=== PATIENT | female | born 1970 | race African-American/Black ===

== ENCOUNTER 2019-07-26 07:14 | Outpatient (CLI) | payer BC, SELFPAY ==
--- NOTE | ~2019-07-26 | MM_ITS ---
EXAMINATION: MM screening narendra BI w meliton HISTORY: Screening mammogram TECHNIQUE: Craniocaudal and mediolateral oblique 3-D tomosynthesis images were obtained and synthetic 2-D images were generated. CAD analysis was submitted and interpreted. COMPARISON: Comparison to multiple prior studies sequentially, with oldest reviewed study dated 06/13. BREAST PARENCHYMAL COMPOSITION: The breasts are heterogeneously dense, which may obscure small masses . FINDINGS: There is no evidence of suspicious mass, calcification, or architectural distortion to sugg est malignancy in either breast. There has been no suspicious interval change. IMPRESSION: 1. No mammographic evidence of malignancy. 2. Recommend routine screening mammography in one year. BI-RADS Category 1: Negative Reviewed, dictated and finalized at location A.
== END 2019-07-26 07:15 | disposition home or self-care (01) ==
LOC: ANHIMG 07:16
PROVIDERS: PCP Family Medicine; Visit Provider Family Medicine
DX: Z12.31 Encounter for screening mammogram for malignant neoplasm of breast (principal)
CPT/HCPCS: 77063; 77067

== ENCOUNTER → 2020-01-14 11:36 | Outpatient (CLI) | payer BC, SELFPAY ==
--- NOTE | ~2020-01-14 | US_ITS ---
EXAMINATION: US thyroid DATE: 01/14/2020 11:57 INDICATION: Iron deficiency related diffuse endemic goiter. TECHNIQUE: Multiple ultrasound images of the thyroid were obtained. COMPARISON: None. FINDINGS: The right thyroid lobe measures 5.0 x 2.1 x 2.3 cm. The left thyroid lobe measures 4.6 x 1.8 x 2.3 c m. In the right thyroid lobe, there is a 1.1 cm solid, hypoechoic, [id number] nodule with miladis h margin without echogenic foci (TI-RADS TR4). In the thyroid isthmus, there is a 6 mm solid, hypoech oic, [id number]-[id number] nodule with smooth margin without echogenic foci (TR4). IMPRESSION: 1. Thyroid nodules. Thyroid ultrasound is recommended in one year. Reviewed, dictated and finalized at location A. N TESTER
== END ==
PROVIDERS: PCP Family Medicine; Visit Provider Family Medicine
DX: E01.0 Iodine-deficiency related diffuse (endemic) goiter (principal)
CPT/HCPCS: 76536

== ENCOUNTER 2020-08-07 07:17 | Outpatient (CLI) | payer BC, SELFPAY ==
--- NOTE | ~2020-08-07 | MM_ITS ---
EXAMINATION: MM screening narendra BI w meliton HISTORY: Screening mammogram, family history of breast cancer in her mother. TECHNIQUE: Craniocaudal and mediolateral oblique 3-D tomosynthesis images were obtained and synthetic 2-D images were generated. CAD analysis was submitted and interpreted. COMPARISON: 07/26/2019, 07/18/2018, 03/31/2017 BREAST PARENCHYMAL COMPOSITION: The breasts are heterogeneously dense, which may obscure small masses . FINDINGS: There is no evidence of suspicious mass, calcification, or architectural distortion to sugg est malignancy in either breast. There has been no suspicious interval change. IMPRESSION: 1. No mammographic evidence of malignancy. 2. Recommend routine screening mammography in one year. BI-RADS Category 1: Negative Reviewed, dictated and finalized at location A.
== END 2020-08-07 07:18 | disposition home or self-care (01) ==
LOC: ANHIMG 07:18
PROVIDERS: PCP Family Medicine; Visit Provider Obstetrics & Gynecology
DX: Z12.31 Encounter for screening mammogram for malignant neoplasm of breast (principal)
CPT/HCPCS: 77063; 77067

== ENCOUNTER 2020-09-29 13:12 | Outpatient (CLI) | payer BC, SELFPAY ==
--- NOTE | ~2020-09-29 | CT_ITS ---
EXAMINATION: CT soft tissue neck wo con DATE: 09/29/2020 13:37 INDICATION: Left neck lump. TECHNIQUE: Computed tomography (CT) of the neck was performed without intravenous contrast. Automated exposure control and iterative reconstruction technique were employed. The dose-length product was 5 19.64 mGy-cm. COMPARISON: Thyroid ultrasound 01/14/2020 FINDINGS: There is a skin marker in the left neck. There is no abnormal mass in this area. There are no pathologically enlarged lymph nodes. There is mild mucosal thickening in the ethmoid sinuses. Ther e is mild cervical spondylosis. IMPRESSION: 1. No abnormal mass or lymphadenopathy in the patient's area of concern in left neck. Reviewed, dictated and finalized at location A.
== END 2020-09-29 13:13 | disposition home or self-care (01) ==
LOC: ANHIMG 13:14
PROVIDERS: PCP Family Medicine; Visit Provider Family Medicine
DX: R22.1 Localized swelling, mass and lump, neck (principal)
CPT/HCPCS: 70490

== ENCOUNTER → 2021-02-10 03:57 | Outpatient (CLI) | payer BC, SELFPAY ==
[2021-02-15 22:56] LABS: SARS-CoV-2 RNA PCR Negative
== END ==
PROVIDERS: PCP Family Medicine; Visit Provider Physician Assistant
DX: Z20.822 Contact with and (suspected) exposure to COVID-19 (principal)
CPT/HCPCS: C9803; U0003; U0005

== ENCOUNTER 2021-08-20 08:14 | Outpatient (CLI) | payer BC, SELFPAY ==
--- NOTE | ~2021-08-20 | MM_ITS ---
EXAMINATION: MM screening narendra BI w meliton HISTORY: Screening TECHNIQUE: Craniocaudal and mediolateral oblique 3-D tomosynthesis images were obtained and synthetic 2-D images were generated. CAD analysis was submitted and interpreted. COMPARISON: Comparison to multiple prior studies sequentially, with oldest reviewed study dated 08/06. BREAST PARENCHYMAL COMPOSITION: The breasts are heterogeneously dense, which may obscure small masses . FINDINGS: There is no evidence of suspicious mass, calcification, or architectural distortion to sugg est malignancy in either breast. There has been no suspicious interval change. IMPRESSION: 1. No mammographic evidence of malignancy. 2. Recommend routine screening mammography in one year. BI-RADS Category 1: Negative Reviewed, dictated and finalized at location A.
== END 2021-08-20 08:15 | disposition home or self-care (01) ==
PROVIDERS: PCP Family Medicine; Visit Provider Family Medicine
DX: Z12.31 Encounter for screening mammogram for malignant neoplasm of breast (principal)
CPT/HCPCS: 77063; 77067

== ENCOUNTER 2022-04-14 10:20 | Outpatient (CLI) | payer BC, SELFPAY ==
--- NOTE | ~2022-04-14 | US_ITS ---
EXAMINATION: US pelvic complete w TV DATE: 04/14/2022 11:38 INDICATION: Uterine hypertrophy. Patient going through menopause. Comparison:Ultrasound dated 09/28/2018 TECHNIQUE: Multiple transabdominal and endovaginal sonographic images of the pelvis performed. FINDINGS: The uterus measures 6.1 x 5 x 5 cm. There are multiple uterine fibroids, some of which are calcified. Largest discrete fibroid measures 4.6 x 3.7 x 2.6 cm. The endometrial complex measures 2 m m. The the ovaries are not well visualized. There is possible right ovary identified on the transabdomin al images, although this is not definitive. No significant adnexal masses or fluid collections. There is trace free fluid in the pelvis. There are no abnormal masses seen on either side. IMPRESSION: 1. Multiple uterine fibroids with increased size of largest now measuring 4.6 cm greatest dimension. 2: Ovaries not well visualized, possibly atrophic. Reviewed, dictated and finalized at location A. E PLANT SUPERVISOR IMPRESSION: 1. Multiple uterine fibroids with increased size of largest now measuring 4.6 c m greatest dimension. 2: Ovaries not well visualized, possibly atrophic.
== END 2022-04-14 10:21 | disposition home or self-care (01) ==
PROVIDERS: PCP Family Medicine; Visit Provider Obstetrics & Gynecology
DX: N85.2 Hypertrophy of uterus (principal); D25.9 Leiomyoma of uterus, unspecified
CPT/HCPCS: 76830; 76856

== ENCOUNTER 2022-07-14 12:30 | Outpatient (RCR) | payer BC, OTHER, SELFPAY ==
--- NOTE | 2022-05-19 09:39 | PTOPEVAL1 ---
Assessment and note entered by Ann Gaviria DPT Evaluation Information Assessment Status Evaluation Subjective Information Pt reports she has always experienced urinary frequency. Started noticing incontinence in her 30 's and was diagnosed with fibroids. Had a procedure to take care of the fibroids in 2005. The incontinence for a few years was gone, but then started noticing it again. Dr. Clifford did an ultrasound recently and has been diagnosed with the fibroids again. States she wears a pad all the time now, goes through 3-4 a day and sometimes 2 at night. Incontinence every day, slow leak throughout the day . Does not seem to notice it is any worse with cough, sneeze, laugh, etc. Urinates more than 10 times a day and has recently been getting up 1 time at night. Denies pain with urination except for having a UTI which is not common. BM every 1-2 days, typically does not have pain. Denies a history of significant pelvic pain , maybe occasional discomfort with pap smear. Pt has never been . States she has periods but not as regular anymore, may be nearing menopause. Reported Pain Level Pain Score 0: Self Report Assessment PT Clinical Summary The patient is presenting to skilled therapy with urinary incontinence and frequency. She demonstrates decreased pelvic floor strength, as well as decreased hip/core strength, which are contributing to her daily incontinence and frequency. She will benefit from therapy to address her impairments in order to reduce her urinary symptoms and pad use. Plan of Care Interventions Manual Therapy,Neuro Re-education,Patient/ Caregiver Education,Therapeutic Activities, Therapeutic Exercise,Self-Care/Home Management PT Services Indicated Yes Treatment Frequency and 1 time a week for 4 weeks Duration These treatments will address the objective and functional deficits as defined above. The patient will be advanced safely and appropriately in order for the patient to progress towards his/her prior level of function. Additional exercises will be introduced and as well as a comprehensive home exercise program upon discharge, if needed, ?to ensure carryover of functional gains achieved in the clinic. This treatment plan has been reviewed and agreement upon by the patient.
--- NOTE | 2022-05-26 12:29 | PCPTNOTE ---
Pt called and cancelled due to inclement weather
--- NOTE | 2022-06-16 09:17 | PTOPPROG ---
Assessment and note entered by Ann Gaviria DPT Evaluation Information Assessment Status Progress Subjective Information Pt reports some improvements with therapy. Has been compliant with HEP and is noticing improvements in her ability to hold urine longer and is not rushing to the bathroom as often. Still getting incontinence daily. Will be getting surgery end of the year, hysterectomy. Assessment PT Clinical Summary The patient has made good progress in therapy and reports decreased urinary urgency/frequency. She continues to have incontinence daily. She demonstrates improved core and pelvic floor strength. Due to her progress but continued incontinence, she will benefit from further therapy to decrease frequency of incontinence. Plan of Care Interventions Manual Therapy,Neuro Re-education,Patient/ Caregiver Education,Therapeutic Activities, Therapeutic Exercise,Self-Care/Home Management PT Services Indicated Yes Treatment Frequency and 1 time a week for 4 weeks Duration These treatments will address the objective and functional deficits as defined above. The patient will be advanced safely and appropriately in order for the patient to progress towards his/her prior level of function. Additional exercises will be introduced and as well as a comprehensive home exercise program upon discharge, if needed, ?to ensure carryover of functional gains achieved in the clinic. This treatment plan has been reviewed and agreement upon by the patient.
--- NOTE | 2022-06-23 08:43 | PCPTNOTE ---
Pt called to cancel appointment
--- NOTE | 2022-07-14 13:01 | PTOPDC ---
Assessment and note entered by Ann Gaviria DPT Evaluation Information Assessment Status Discharge Subjective Information Pt reports therapy has been going well for the past month, thinks improvements have been made as far as pelvic floor strength and her ability to hold urine. Incontinence is occurring daily still, a few drops at a time but noticeable. Has been more active this week. Reported Pain Level Pain Score 0: Self Report Assessment PT Clinical Summary The patient has made good progress overall in therapy. She demonstrates improved hip strength and improved pelvic floor coordination. Due to her progress and independence with HEP, plan for discharge at this time. She has been educated to continue and how to progress her HEP independently in order to prepare for surgery at the end of the year. Plan of Care PT Services Indicated No
== END 2022-07-14 13:28 | disposition home or self-care (01) ==
LOC: ANHPT 12:30
PROVIDERS: PCP Family Medicine; Visit Provider Family Medicine
DX: R32 Unspecified urinary incontinence (principal)
CPT/HCPCS: 97112; 97161; 97530

== ENCOUNTER → 2022-11-21 14:29 | Outpatient (CLI) | payer OTHER, SELFPAY ==
--- NOTE | ~2022-11-21 | MM_ITS ---
EXAMINATION: MM screening narendra BI w meliton HISTORY: Screening mammogram TECHNIQUE: Craniocaudal and mediolateral oblique 3-D tomosynthesis images were obtained and synthetic 2-D images were generated. CAD analysis was submitted and interpreted. COMPARISON: 08/20/2021, 08/07/2020, 07/26/2019 screening mammogram examinations BREAST PARENCHYMAL COMPOSITION: The breasts are heterogeneously dense, which may obscure small masses . FINDINGS: There is no evidence of suspicious mass, calcification, or architectural distortion to sugg est malignancy in either breast. There has been no suspicious interval change. IMPRESSION: 1. No mammographic evidence of malignancy. 2. Recommend routine screening mammography in one year. BI-RADS Category 1: Negative Reviewed, dictated and finalized at location A.
== END ==
PROVIDERS: PCP Family Medicine; Visit Provider Obstetrics & Gynecology
DX: Z12.31 Encounter for screening mammogram for malignant neoplasm of breast (principal)
CPT/HCPCS: 77063; 77067

== ENCOUNTER 2022-12-29 14:58 | Outpatient (CLI) | payer OTHER, SELFPAY ==
--- NOTE | ~2022-12-29 | US_ITS ---
US thyroid INDICATION: Follow-up thyroid nodules TECHNIQUE: Real-time sonographic images of the thyroid gland were obtained. COMPARISON: Ultrasound dated 01/14/2020 FINDINGS: The right thyroid lobe measures right thyroid lobe measures 4.7 x 2.2 x 2.3 cm. Left lobe m easures 5 x 1.7 x 2.4 cm. In the right lobe inferiorly there is an oval hypoechoic 11 mm mass which i s wider than tall, solid, ill-defined margins, wider than tall, no internal echogenic foci, TR 4. The re is a stable second 5 mm hypoechoic mass of the right lobe.. Normal vascularity. Slight interval in creased size of 9 mm oval hypoechoic mass of the isthmus which is solid, wider than tall, smoothly ma rginated without echogenic foci, TR 4. IMPRESSION: 1. Stable likely benign right thyroid nodules. Consider follow-up ultrasound in 12 months. Reviewed, dictated and finalized at location A. IMPRESSION: 1. Stable likely benign right thyroid nodules. Consider follow-up ultrasound i n 12 months.
== END 2022-12-29 14:59 ==
LOC: MICIMG 14:59
PROVIDERS: PCP Family Medicine; Visit Provider Otolaryngology
DX: E04.2 Nontoxic multinodular goiter (principal)
CPT/HCPCS: 76536

== ENCOUNTER 2023-01-30 17:23 | Emergency (ER) | payer OTHER, SELFPAY ==
--- NOTE | ~2023-01-30 | XR_ITS ---
EXAMINATION: XR chest 2V Exam Date/Time: 01/30/2023 23:42 AUTOMOTIVE WARRANTY ADMINISTRATOR HISTORY: cough DIZZY PASSED OUT Comparison: 03/03/2018. RESULT: Lines, tubes, and devices: None. Lungs and pleura: Clear. Cardiomediastinal silhouette: Stable. Other: No acute osseous or upper abdominal finding. IMPRESSION: No acute cardiopulmonary process. Reviewed, dictated and finalized at location K. MOTIVE WARRANTY ADMINISTRATOR
--- NOTE | 2023-01-30 17:24 | ECG_ITS ---
Measurements Intervals [place] Rate: 75 P: 61 NH: 210 QRS: -29 QRSD: 89 T: 64 QT: 363 QTc: 407 Interpretive Statements SINUS RHYTHM WITH FIRST DEGREE AV BLOCK POSSIBLE LEFT ATRIAL ENLARGEMENT [-0.1mV P WAVE IN V1/V2] LOW QRS VOLTAGE IN PRECORDIAL LEADS [QRS DEFLECTION < 1.0 mV IN CHEST LEADS] POOR R-WAVE PROGRESSION, CANNOT RULE OLD sEPTAL MYOCARDIAL INFARCTION NO PREVIOUS ECG AVAILABLE FOR COMPARISON Electronically Signed On 01-30-2023 20:24:17 PREP PERSON by Aleida Webster M.D.
[2023-01-30 17:50] VITALS: BP 123/65; PULSE 80; RESP 20; TEMP 36.6; O2SAT 97
[2023-01-30 23:20] VITALS: BP 129/74; PULSE 75; RESP 15; O2SAT 100
--- NOTE | 2023-01-30 23:42 | ED.SYNCOPE ---
HPI - Syncope General Chief Complaint: Syncope Stated Complaint: SYNCOPE,DIZZINESS,WEAKNESS Time Seen by Provider: 01/30/23 22:40 History of Present Illness HPI narrative: Patient is a 52-year-old female with history of hypertension presenting with syncope. Patient states that for the last several days she has had body aches, nasal congestion, cough. States that she was at work today when she began feeling lightheaded, nauseated, hot. states the next thing she remembers is her coworkers waking her up. States that she felt very sweaty. She denies chest pain or shortness of breath. Currently, she states that she feels improved other than the diffuse body aches. States she had a negative COVID test at home. No fevers or chills, abdominal pain, nausea vomiting, diarrhea. Denies leg swelling. No further complaints. Related Data Home Medications Medication Instructions Recorded Confirmed evening primrose oil-linoleic 1 cap PO TID 12/05/19 02/06/23 acid-gamolenic acid 1,000 mg capsule vitamin E 200 unit capsule 200 unit PO DAILY 12/05/19 02/06/23 lactobacillus combination no.9 4 4,000 mmu cells PO DAILY 02/16/20 02/06/23 billion cell capsule (Adult 50 Plus Probiotic) famotidine 20 mg tablet (Pepcid) 20 mg PO DAILY PRN 12/22/20 02/06/23 cholecalciferol (vitamin D3) 350 1,000 mcg PO WEEKLY 09/26/21 02/06/23 mcg (14,000 unit) capsule ruxolitinib 1.5 % topical cream 1 applic topical BID 03/20/22 02/06/23 (Opzelura) hydroquinone 4 % topical cream 1 applic topical DAILY 11/10/22 02/06/23 Allergies Allergy/AdvReac Type Severity Reaction Status Date / Time tree nut Allergy Intermediate Rash Verified 02/06/23 11:07 Review of Systems Review of Systems: All systems reviewed & are unremarkable except as noted in HPI and below PMFSH Past Medical History Medical History Acid reflux Embolism 2006, uterine FH: diabetes mellitus Fibroids Neck mass Prediabetes Urinary incontinence Surgical History Surgical History H/O eye surgery Status post embolization of uterine artery Family History Family History Mother , Metastatic breast cancer- COD age 59 Hypertension Diabetes mellitus Breast cancer, Onset Age: 40 Father Hypertension Diabetes mellitus Hyperlipidemia Sibling Diabetes mellitus Grandparent Heart disease Social History Social History Smoking status: Never smoker Second hand tobacco smoke exposure: No Alcohol intake: current Alcohol use details: rare Substance use: never Substance use type: does not use Lack of Transportation: No Lack of Food: Never True Current Housing: I Have Housing Concerned About Future Housing: No Difficulty Paying Gas/Electric Bills: No Difficulty Paying for Meds: No Currently Unemployed: No Education: Bachelor's Degree Difficulty w/ Childcare or Family Care: No Living arrangements: with family Gender identity (if verbalized by the patient): Female Sexual Orientation (if Verbalized by the Patient): Straight or Heterosexual Spiritual care concerns: No Agree to blood products: Yes Exam Narrative: GENERAL: Well-appearing, In no acute distress, pleasant and cooperative HEAD: Normocephalic, atraumatic. EYES: PERRLA and EOMI. ENT: Mucous membranes moist. NECK: Supple. CHEST: Clear to auscultation. No respiratory distress. HEART: Regular rate and rhythm ABDOMEN: Soft, nontender, nondistended EXTREMITIES: Normal range of motion. No edema. SKIN: Warm, dry, no rash. NEURO: No focal deficits. Alert and oriented x3. PSYCH: Normal mood and affect. Course Vital Signs Vital signs: Vital Signs Temperature 97.8 F 01/30/23 17:50 Pulse Rate 80
[2023-01-31] MEDS: SODIUM CHLORIDE 0.9% IV 1,000 ML 999 ML IV CONT (00:09)
[2023-01-31 00:24] LABS: Basophils Percent Auto 0.3 % (0.2-1.2); Hematocrit 40.2 % (37.0-47.0); Hemoglobin 12.9 g/dL (12.0-15.0); Immature Granulocyte Absolute 0.01 K/mm3 (0.00-0.031); Immature Granulocyte Percent A 0.3 % (0-0.5); Lymphocytes Absolute Auto 1.26 K/mm3 (0.9-3.2); Lymphocytes Percent Auto 36.2 % (18.3-44.2); Mean Corpuscular HGB Conc 32.1 g/dl (32-36); Mean Corpuscular Hemoglobin 26.7 pg (26-34); Mean Corpuscular Volume 83.2 fl (80-100); Mean Platelet Volume 10.2 fl (7.4-10.4); Monocytes Absolute Auto 0.4 K/mm3 (0.1-0.6); Monocytes Percent Auto 11.5 % (2.6-8.5); Neutrophils Absolute Auto 1.8 K/mm3 (1.3-6.7); Neutrophils Percent Auto 51.7 % (45.5-73.1); Platelet Count Result 217 k/mm3 (150-375); Red Blood Count 4.83 M/mm3 (4.2-5.4); Red Cell Distribution Width 13.6 % (11.5-14.5); White Blood Count 3.5 K/mm3 (4.5-10.0)
[2023-01-31 00:29] LABS: Alanine Aminotransferase 37 U/L (6-35); Albumin Level 4.6 g/dL (3.5-5.1); Alkaline Phosphatase 118 U/L (38-126); Anion Gap 9 mmol/L (8-16); Aspartate Amino Transferase 45 U/L (14-36); Bilirubin,Total 0.5 mg/dL (0.2-1.3); Blood Urea Nitrogen 16 mg/dL (7-17); Calcium 8.9 mg/dL (8.4-10.2); Carbon Dioxide 28 mmol/L (22-30); Chloride 99 mmol/L (98-107); Estimated CRCL calculation 69 ml/min; Estimated Glomerular Filt Rate > 60; Glucose 158 mg/dL (65-110); Potassium 3.8 mmol/L (3.4-5.0); Sodium 136 mmol/L (137-145)
[2023-01-31 00:40] LABS: Troponin I < 0.012 ng/mL (0.000-0.034)
[2023-01-31 01:21] LABS: Influenza A QL RT-PCR Negative (Negative); Influenza B QL RT-PCR Negative (Negative); RSV RNA, RT-PCR Negative (Negative); SARS-CoV-2 RNA PCR Positive (Negative)
[2023-01-31 02:57] VITALS: BP 117/83; PULSE 68; RESP 15; O2SAT 98
== END 2023-01-31 03:04 | disposition home or self-care (01) ==
PROVIDERS: Emergency Provider Emergency Medicine; PCP Family Medicine
DX: R55 Syncope and collapse (principal); U07.1 COVID-19
CPT/HCPCS: 36415; 71046; 80053; 84484; 85025; 87637; 93005; 96360; 99284; J7030

== ENCOUNTER 2023-02-13 15:53 | Outpatient (CLI) | payer OTHER, SELFPAY ==
--- NOTE | ~2023-02-13 | CT_ITS ---
EXAMINATION: CT brain wo con DATE: 02/13/2023 16:15 INDICATION: Headache, unspecified. TECHNIQUE: Computed tomography (CT) of the head was performed without intravenous contrast. The mA wa s adjusted according to patient size. Iterative reconstruction technique was employed. The dose-lengt h product was 681.00 mGy-cm. COMPARISON: None FINDINGS: There is no intracranial hemorrhage, acute infarction, or abnormal intracranial mass lesion . The ventricles are normal in size. The mastoid air cells are normal. The paranasal sinuses are antionette r. IMPRESSION: 1. Normal brain. Reviewed, dictated and finalized at location E. T MAKER IMPRESSION: 1. Normal brain.
== END 2023-02-13 15:54 | disposition home or self-care (01) ==
PROVIDERS: PCP Family Medicine; Visit Provider Physician Assistant
DX: R51.9 Headache, unspecified (principal); R55 Syncope and collapse
CPT/HCPCS: 70450

== ENCOUNTER 2023-03-14 15:32 | Outpatient (CLI) | payer OTHER, SELFPAY ==
--- NOTE | 2023-03-14 15:47 | ECHO_ITS ---
Patient Info Name: Araseli Peace Age: 53 years : 1970 Gender: Female Ht: 65 in Wt: 180 lbs BSA: 1.96 m2 HR: 89 bpm BP: 135 / 99 mmHg Heart Rhythm: Sinus Rhythm Technical Quality: Good Exam Date: 03/14/2023 3:58 PM Exam Location: Echo Lab Patient Status: Outpatient Admit Date: 03/14/2023 Staff Ordering Physician: Elif Amaral PA-C Sand Cutter: Puja Hussein RDCS Attending Provider: Elif Amaral PA-C Referring Physician: Munir ORELLANA; Exam Type: CA echo doppler color flow Study Info Indications - syncope Complete two-dimensional, color flow and Doppler transthoracic echocardiogram is performed. Summary 1. Complete two-dimensional, color flow and Doppler transthoracic echocardiogram is performed. 2. Normal left ventricular size with moderate concentric hypertrophy. Hyperdynamic left ventricular systolic function, with no segmental wall motion abnormalities. Ejection fraction greater than 70%. Normal diastolic function. 3. No pulmonary hypertension, estimated pulmonary arterial systolic pressure is 24 mmHg. 4. No significant valve disease. 5. Possible atrial septal aneurysm. No obvious shunt by color flow, on this technically difficult study. Recommendations * Underlying rhythm may be normal sinus. Left Ventricle Left ventricular chamber dimension is normal. Left ventricular systolic function is hyperdynamic, estimated at >70%. There is moderately increased left ventricular wall thickness. Left ventricular septal wall motion is normal. The left ventricular diastolic function is normal. Right Ventricle Right ventricular chamber dimension is normal. Right ventricular systolic function is normal. Left Atria Left atrial chamber dimension is normal. Right Atria Right atrial chamber dimension is normal. Aortic Valve The aortic valve is trileaflet. There is no aortic valve sclerosis. There is no aortic valve stenosis. There is no aortic valve regurgitation. Pulmonic Valve The pulmonic valve is normal. There is no pulmonic valve stenosis. There is no pulmonic regurgitation. Mitral Valve The mitral valve has normal leaflets. There is no mitral valve stenosis. There is no mitral valve regurgitation. Tricuspid Valve The tricuspid valve leaflets are normal. There is no significant tricuspid valve stenosis. There is trace tricuspid valve regurgitation. No pulmonary hypertension, estimated pulmonary arterial systolic pressure is 24 mmHg. Pericardium/Pleural The pericardium appears normal. There is no pericardial effusion. Inferior Vena Cava Normal inferior vena cava with >50% collapse upon inspiration consistent with Empty right atrial pressure, 10 mmHg. Aorta The aortic root size at the sinus of Valsalva is normal. The prox ascending aorta size is normal. Left Ventricular Outflow Tract Name Value Normal LVOT 2D LVOT Diameter 1.8 cm LVOT Doppler LVOT Peak Velocity 112 cm/s LVOT Peak Gradient 3 mmHg LVOT Mean Gradient 2 mmHg LVOT VTI 20 cm LVOT VTI/AV VTI Ratio 1.0 LVOT Stroke Volum
== END 2023-03-14 15:33 | disposition home or self-care (01) ==
PROVIDERS: PCP Family Medicine; Visit Provider Physician Assistant
DX: R93.1 Abnormal findings on diagnostic imaging of heart and coronary circulation (principal); R55 Syncope and collapse
CPT/HCPCS: 93306

== ENCOUNTER 2023-03-31 08:12 | Outpatient (CLI) | payer OTHER, SELFPAY ==
--- NOTE | ~2023-03-31 | XR_ITS ---
EXAMINATION: XR abdomen/kub 1V DATE: 03/31/2023 09:44 INDICATION: Hematuria, unspecified. TECHNIQUE: A supine view of the abdomen on 2 radiographs was obtained. COMPARISON: CT abdomen and pelvis 03/08/2016 FINDINGS: There are no dilated loops of bowel. There is a moderate volume of stool in the colon. Ther e are vascular calcifications in the pelvis. There is a phlebolith in right pelvis. IMPRESSION: 1. No visible urolithiasis. Reviewed, dictated and finalized at location E. DENTIAL PROPERTY MANAGER IMPRESSION: 1. No visible urolithiasis.
--- NOTE | ~2023-03-31 | MR_ITS ---
EXAMINATION: MR pelvis wo con DATE: 03/31/2023 11:50 INDICATION: Intramural leiomyoma of uterus. TECHNIQUE: Magnetic resonance imaging (MRI) of the pelvis was performed without intravenous contrast. COMPARISON: Pelvis ultrasound 04/14/2022, CT abdomen and pelvis 03/08/2016 FINDINGS: There are no dilated loops of bowel. There are no pathologically enlarged lymph nodes. There is no fr ee intraperitoneal fluid. There is a 1.8 cm intramural fibroid on the left anteriorly. There is a 4.0 cm subserosal fibroid on the left anteriorly. There are 1.5 cm and 1.8 cm subserosal fibroids on the left. There is a 13 mm subserosal fibroid on the right anteriorly. The endometrial complex measures 3 mm . The junctional zone is normal. The ovaries are normal. IMPRESSION: 1. Uterine fibroids. Reviewed, dictated and finalized at location E. SFORCE CONSULTANT IMPRESSION: 1. Uterine fibroids.
== END 2023-03-31 08:13 ==
PROVIDERS: PCP Family Medicine; Visit Provider Obstetrics & Gynecology
DX: D25.1 Intramural leiomyoma of uterus (principal); D25.2 Subserosal leiomyoma of uterus; R31.9 Hematuria, unspecified
CPT/HCPCS: 72195; 74018

== ENCOUNTER 2023-05-01 14:36 | Outpatient (RCR) | payer OTHER, SELFPAY ==
[2023-05-01 14:44] VITALS: BMI 28.0
== END 2023-07-30 09:26 | disposition home or self-care (01) ==
LOC: ANHDMC 14:36
PROVIDERS: PCP Family Medicine; Visit Provider Family Medicine
DX: E11.9 Type 2 diabetes mellitus without complications (principal); Z71.3 Dietary counseling and surveillance
CPT/HCPCS: 97802

== ENCOUNTER 2023-11-30 07:11 | Outpatient (CLI) | payer OTHER, SELFPAY ==
--- NOTE | ~2023-11-30 | MM_ITS ---
EXAMINATION: MM screening narendra BI w meliton HISTORY: Screening mammogram, family history of breast cancer in her mother. TECHNIQUE: Craniocaudal and mediolateral oblique 3-D tomosynthesis images were obtained and synthetic 2-D images were generated. CAD analysis was submitted and interpreted. COMPARISON: 11/21/2022, 08/20/2021, 08/15/2020, 07/26/2019 BREAST PARENCHYMAL COMPOSITION:Not Dense. There are scattered areas of fibroglandular density. FINDINGS: No suspicious mass, calcification, or architectural distortion are identified in either joan ast to suggest malignancy. There has been no suspicious interval change. IMPRESSION: No mammographic evidence of malignancy. Recommend routine screening mammography in one year. BI-RADS Category 1: Negative Reviewed, dictated and finalized at location .
== END 2023-11-30 07:12 | disposition home or self-care (01) ==
LOC: MICIMG 07:12
PROVIDERS: PCP Family Medicine; Visit Provider Obstetrics & Gynecology
DX: Z12.31 Encounter for screening mammogram for malignant neoplasm of breast (principal)
CPT/HCPCS: 77063; 77067

== ENCOUNTER 2024-04-02 09:26 | Emergency (ER) | payer OTHER, SELFPAY ==
--- NOTE | ~2024-04-02 | XR_ITS ---
EXAMINATION: XR knee RT min 4V DATE: 04/02/2024 12:01 INDICATION: Right knee pain. TECHNIQUE: 4 views of right knee were obtained. COMPARISON: None. FINDINGS: Alignment is normal. No fracture. There is mild tricompartmental osteoarthritis. There is a moderate-sized knee joint effusion. IMPRESSION: 1. Mild right knee osteoarthritis. 2. Moderate-sized right knee joint effusion. Reviewed, dictated and finalized at location A. NE LATHE SET UP OPERATOR
--- NOTE | ~2024-04-02 | XR_ITS ---
EXAMINATION: XR knee LT min 4V DATE: 04/02/2024 12:01 INDICATION: Left leg pain. TECHNIQUE: 4 views of left knee were obtained. COMPARISON: None. FINDINGS: Alignment is normal. No fracture. There is mild osteoarthritis of medial and patellofemoral compartments. No knee joint effusion. IMPRESSION: 1. Mild left knee osteoarthritis. Reviewed, dictated and finalized at location A. UNITY ARTS OFFICER
[2024-04-02 09:46] VITALS: BP 121/53; PULSE 76; RESP 16; TEMP 36.4; O2SAT 99
--- NOTE | 2024-04-02 12:38 | ED.GENADULT ---
HPI - General Adult General Chief complaint: Extremity Injury, Lower Stated complaint: R knee pain Time Seen by Provider: 04/02/24 11:57 History of Present Illness HPI narrative: This is a 54-year-old female presenting with knee pain. Patient says that she started working out again several days ago. Since then she has developed swelling in her right knee. She is able to ambulate. She does not have any fevers or erythema to the joint. No trauma. Related Data Home Medications ?Medication ?Instructions ?Recorded ?Confirmed ?Last Taken ?Type evening primrose oil-linoleic 1 cap PO TID 12/05/19 02/05/24 Unknown History acid-gamolenic acid 1,000 mg capsule vitamin E 200 unit capsule 200 unit PO DAILY 12/05/19 02/05/24 Unknown History lactobacillus combination no.9 4 4,000 mmu cells PO DAILY 02/16/20 02/05/24 Unknown History billion cell capsule (Adult 50 Plus Probiotic) famotidine 20 mg tablet (Pepcid) 20 mg PO DAILY PRN 12/22/20 02/05/24 Unknown History cholecalciferol (vitamin D3) 350 1,000 mcg PO WEEKLY 09/26/21 02/05/24 Unknown History mcg (14,000 unit) capsule ruxolitinib 1.5 % topical cream 1 applic topical BID 03/20/22 02/05/24 Unknown History (Opzelura) Allergies Allergy/AdvReac Type Severity Reaction Status Date / Time tree nut Allergy Intermediate Rash Verified 04/02/24 09:49 PMFSH Past Medical History Medical History Diabetes Fibroids Urinary incontinence Neck mass Embolism 2005, uterine Acid reflux Prediabetes FH: diabetes mellitus Surgical History Surgical History H/O eye surgery Status post embolization of uterine artery Family History Family History Mother , Metastatic breast cancer- COD age 59 Hypertension Diabetes mellitus Breast cancer, Onset Age: 40 Father Hypertension Diabetes mellitus Hyperlipidemia Sibling Diabetes mellitus Grandparent Heart disease Social History Social History Smoking status: Never smoker Second hand tobacco smoke exposure: No Alcohol intake: current Alcohol use details: rare Substance use: never Substance use type: does not use Lack of Transportation: No Lack of Food: Never True Current Housing: I Have Housing Concerned About Future Housing: No Difficulty Paying Gas/Electric Bills: No Difficulty Paying for Meds: No Currently Unemployed: No Education: Bachelor's Degree Difficulty w/ Childcare or Family Care: No Living arrangements: with family Gender identity (if verbalized by the patient): Female Sexual Orientation (if Verbalized by the Patient): Straight or Heterosexual Spiritual care concerns: No Agree to blood products: Yes Exam Narrative: APPEARANCE: No apparent distress. Head: atraumatic. EYES: EOMI, NOSE: Atraumatic NECK: Trachea midline RESPIRATORY: No increased rate of breathing CARDIOVASCULAR: RRR, ABDOMINAL: Non-distended MUSCULOSKELETAl: Focal exam of the lower extremities revealed moderate-sized effusion to right knee. No warmth, or erythema. Patient is able to bear weight. Both feet are neurovascularly intact. NEURO: Alert. Moving 4/4 extremities SKIN:: Warm, dry. Normal color PSYCHIATRIC: Normal affect Course Vital Signs Vital signs: Vital Signs Temperature 97.6 F 04/02/24 09:46 Pulse Rate 76 04/02/24 09:46 Respiratory Rate 16 04/02/24 09:46 Blood Pressure 121/53 L 04/02/24 09:46 Pulse Oximetry 99 04/02/24 09:46 Temperature 97.6 F 04/02/24 09:46 Pulse Rate 76 04/02/24 09:46 Respiratory Rate 16 04/02/24 09:46 Blood Pressure 121/53 L 04/02/24 09:46 Pulse Oximetry 99 04/02/24 09:46 Medical Decision Making [facility] Narrative Medical decision making narrative: -Course: 54-year-old female presenting with right knee swelling after she resumed working out. X-rays showed arthritis and a moderate-sized knee effusion. No concern for septic joint she does not have fevers, erythema warmth or inability to bear weight. Patient will be discharged instructions for RICE. Low-dose Motrin Tylenol prescribed. -DDX includes but is not limited to: Arthritis, inflammatory arthritis, septic arthritis, bony injury, soft tissue injury -Co-morbidities complicating care: Arthritis Vital Signs Vital Signs: Vital Signs Temperature 97.6 F 02/05/25 09:46 Pulse Rate 76 04/02/24 09:46 Respiratory Rate 16 04/02/24 09:46 Blood Pressure 121/53 L 04/02/24 09:46 Pulse Oximetry 99 04/02/24 09:46 Temperature 97.6 F 04/02/24 09:46 Pulse Rate 76 04/02/24 09:46 Respiratory Rate 16 04/02/24 09:46 Blood Pressure 121/53 L 04/02/24 09:46 Pulse Oximetry 99 04/02/24 09:46 Discharge Plan Discharge Clinical Impression: Acute knee pain, Effusion of knee Patient Disposition: Home, Self-Care Condition: Stable Instructions: Antibiotic Form, Knee Pain (ED), Swollen Joint (ED) Additional Instructions: You were seen in the emergency department for knee pain. Please use rest ice compression and elevation to reduce swelling. Use Motrin Tylenol as needed for pain. Please follow-up with your primary care physician. Return to ED if her pain becomes unbearable, you develop fevers or inability to walk. Patient Language: Gibraltarian Prescriptions: New acetaminophen 500 mg tablet 1,000 mg PO TID PRN (Reason: bobby) 7 Days Qty: 42 0RF ibuprofen 400 mg tablet 400 mg PO TID Qty: 30 0RF No Action Adult 50 Plus Probiotic 4 billion cell capsule 4,000 mmu cells PO DAILY Rx Instructions: administer with a meal famotidine [Pepcid] 20 mg tablet 20 mg PO DAILY PRN fluticasone propionate 50 mcg/actuation spray,suspension 1 spray NASAL Q12H PRN (Reason: nasal congestion) Qty: 1 4RF Rx Instructions: administer into each nostril Opzelura 1.5 % cream 1 applic topical BID lisinopril 5 mg tablet 5 mg PO DAILY Qty: 90 4RF rafael vain-madizjrx-nuypfugif ac 1,000 mg capsule 1 cap PO TID Rx Instructions: administer with meals vitamin E 200 unit capsule 200 unit PO DAILY Patient Comments: 267mg cholecalciferol (vitamin D3) 350 mcg (14,000 unit) capsule 1,000 mcg PO WEEKLY Patient Comments: unknown dosage (DME) blood-glucose meter Misc See Rx Instructions .Route Qty: 1 0RF Rx Instructions: As directed daily (DME) Blood Glucose Test Strip See Rx Instructions .Route Qty: 100 3RF Rx Instructions: As directed daily (DME) lancets Misc See Rx Instructions .Route Qty: 100 3RF Rx Instructions: As directed daily metformin 500 mg tablet extended release 24 hr 500 mg PO BID Qty: 180 1RF Follow-up/Referrals: Katalina Acosta MD [Primary Care Provider] -
[2024-04-02] MEDS: IBUPROFEN 400 MG TABLET PO (13:25)
[2024-04-02] MEDS: ACETAMINOPHEN 500 MG TABLET 1000 MG PO (13:25)
--- OUTSIDE RECORDS SUMMARY | 2024-04-02 13:25 | XMS_ITS | Encounter Summary ---
Author Organization [facility] Facility Care Team Providers Care Food Production Supervisor Name Role Phone Thao Herrera NP Primary Care Provider [phone] Katalina Acosta MD Primary Care Provider [phone] Encounter Details Date Type Department Care Team (Latest Contact Info) Description 09/18/2015 Orders Only [facility] ProviderRob MD [address] [place] [id number] Social History Tobacco Use Types Packs/Day Years Used Date Smoking Tobacco: Never Assessed Comments Unknown Sex and Gender Information Value Date Recorded Sex Assigned at Not on file Legal Sex Female 5:58 AM DATA LEAD Gender Identity Not on file Sexual Orientation Not on file documented as of this encounter Plan of Treatment Not on file documented as of this encounter Procedures Procedure Name Priority Date/Time Associated Diagnosis Comments SCAN - LABS 09/20/2015 12:00 AM CDT documented in this encounter Results * SCAN - LABS (09/20/2015 12:00 AM CDT) Narrative 09/20/2015 12:00 AM CDT Ordered by an unspecified provider. Historical Provider Final Res ult documented in this encounter Visit Diagnoses Not on filedocumented in this encounter Care Teams Food Production Supervisor Relationship Specialty Start Date End Date Thao Herrera NP PCP - General Internal Medicine 05/18/18 10/23/18 Katalina Acosta MD PCP - General Family Medicine 03/05/20 documented as of this encounter
--- OUTSIDE RECORDS SUMMARY | 2024-04-02 13:25 | XMS_ITS | Clinical Summary ---
Author Organization [facility] Address [facility] [place] [address] Care Team Providers Care Orthopedic Shoe Fitter Name Role Phone Katalina Acosta MD Primary Care Provider [phone] Allergies Active Allergy Reactions Criticality Noted Date Comments Nuts Unknown 07/18/2018 Tree nuts not to be confused from peanuts--ok with peanuts----but no tree nuts Peanut Butter Flavoring Agent (Non-Screening) Unknown 07/18/2018 Medications esomeprazole 40 MG capsule Take 40 mg by mouth every morning before breakfast. Active solifenacin (VESICARE) 5 MG tabletIndications :Urinary frequency,Urge incontinence Take 2 tablets (10 mg total) by mouth daily. 30 tablet 2 1 Active probiotic capsule Take 1 capsule by mouth as needed for Other. Active famotidine 10 MG tablet Take 10 mg by mouth as needed for Heartburn. Active vitamin D3, cholecalciferol, (VITAMIN D-3) 10 MCG (400 UNIT) tablet Take 1,000 Units by mouth daily. Active vitamin E 400 UNIT capsule Take 400 Units by mouth daily. Active Evening Albany Oil 1000 MG Cap Acti ve Active Problems Problem Noted Date Diagnosed Date Asymptomatic microscopic hematuria 09/13/2019 Family History Medical History Relation Comments Dementia Father No Known Problems Maternal Aunt No Known Problems Maternal Grandfather No Known Problems Maternal Grandmother No Known Problems Maternal Uncle Breast Cancer Mother No Known Problems Paternal Aunt No Known Problems Paternal Grandfather No Known Problems Paternal Grandmother No Known Problems Paternal Uncle Relation Status Comments Father Maternal Aunt Maternal Grandfather Maternal Grandmother Maternal Uncle Mother Paternal Aunt Paternal Grandfather Paternal Grandmother Paternal Uncle Social History Tobacco Use Types Packs/Day Years Used Date Smoking Tobacco: Never Smokeless Tobacco: Never Tobacco Cessation:Counseling Given: No Alcohol Use Standard Drinks/Week Comments Yes 0 (1 standard drink = 0.6 oz pur e alcohol) Comments Unknown Sex and Gender Information Value Date Recorded Sex Assigned at Not on file Legal Sex Female 1:54 PM CDT Gender Identity Not on file Sexual Orientation Not on file Last Filed Vital Signs Vital Sign Reading Time Taken Comments Blood Pressure 138/84 11/05/2020 11:00 AM CDT Pulse 100 11/05/2020 11:00 AM CDT Temperature 36.3 ??C (97.3 ??F) 11/05/2020 11:00 AM C DT Respiratory Rate - - Oxygen Saturation 98% 11/05/2020 11:00 AM CDT Inhaled Oxygen Concentration - - Weight 76.2 kg (168 lb) 11/05/2020 11:00 AM CDT Height 167.6 cm (5' 6 ) 11/05/2020 11:00 AM CDT Body Mass Index 27.12 11/05/2020 11:00 AM CDT Plan of Treatment Health Maintenance Due Date Last Done Comments Cervical Cancer Screening Pa p Smear (Age 30 to 64) Every 3 Years 1968 Colorectal Cancer Screening Colonoscopy (10 Years) 1968 Annual Physical 02/11/1971 Hepatitis C 02/11/1986 DTaP, Tdap and Td Vaccines ( 1 - Tdap) 02/11/1987 Hepatitis B Vaccines (1 of 3 - 19+ 3-dose series) 02/11/1987 Cervical Cancer Screening Pa p with HPV Testing (Age 30 to 64) Every 5 Years 02/11/1998 Cervical Cancer Screening with HPV 02/11/1998 Mammogram Screening 2008 Zoster Vaccines (1 of 2) 02/11/2018 COVID-19 Vaccine (2023-2 5 season) 2023 Influenza Adult (#1) 2023 Meningococcal B Vaccine Aged Out No l onger eligible based on patient's age to complete this topic Meningococcal Vaccine Aged Out No humberto klaus eligible based on patient's age to complete this topic Pneumococcal Vaccine: Pediat rics (0 to 5 Years) and At-Risk Patients (6 to 64 Years) Aged Out No longer eligible b ased on patient's age to complete this topic RSV Immunizations Under 20 Months Aged Out No longer eligible based on patient's age to complete this topic Insurance [facility] Care Teams Orthopedic Shoe Fitter Relationship Specialty Start Date End Date Katalina Acosta MD PCP - General FAMILY PRACTICE 05/29/19
--- OUTSIDE RECORDS SUMMARY | 2024-04-02 13:25 | XMS_ITS | Clinical Summary ---
Author Organization [facility] Address [address] [place] [address] Care Team Providers Care Laborer Powerhouse Name Role Phone Katalina Acosta MD Primary Care Provider [phone] Allergies Active Allergy Reactions Criticality Noted Date Comments Nuts Hives Medium 07/18/2018 Tree nuts not to be confused from peanuts--ok with peanuts----but no tree nuts Peanut Butter Flavor Unknown 07/18/2018 Tree Nuts Unknown 07/18/2018 Medications cholecalciferol (VITAMIN D-3) 1,000 unit tablet 1 tablet (1,000 Units total) daily Vitamin D 1000 UNIT Tablet, TAKE: 1 tablet, Once a day Active vitamin E 400 unit capsule 1 capsule (400 Units total) daily Vitamin E 400 UNIT Capsule, TAKE: 1 capsule, Once a day Active fluticasone propionate (FLONASE) 50 mcg/actuation nasal spray fluticasone propionate 50 mcg/actuation nasal spray,suspension Active rafael jbkt-yjiqxriw-i amolenic ac 1,000 mg capsule Take by mouth daily Active desoximetasone (TOPICORT) 0.25 % cream Apply topically as needed for irritation Active ruxolitinib (Opzelura) 1.5 % cream Apply topically as needed Active famotidine (PEPCID) 10 mg tablet Take 1 tablet (10 mg total) by mouth as needed Active hydroCHLOROthia zide (HYDRODIURIL) 12.5 mg tablet Take 1 tablet (12.5 mg total) by mouth daily Active metFORMIN XR (GLUCOPHAGE XR) 500 mg 24 hr tablet Take 1 tablet (500 mg total) by mouth 2 (two) times a day 4 Active lisinopriL (PRINIVIL,ZESTR IL) 5 mg tablet Take 1 tablet (5 mg total) by mouth daily 4 Active Active Problems Problem Noted Date Diagnosed Date 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 No need further intervention. Neck mass 01/25/2022 Assessment & Plan (01/25/2022 10:10 AM ROTARY SWAGING MACHINE OPERATOR): I am really having a hard time palpating anything that would call mass. It may be some diffuse fatty infiltration. I really did not recommend surgery because there really isn't a definable lesion and she understands that. She would like to have it checked again at some point. I talked with her about following up in 6 months for reexamination. She would like to pursue that. She can also see me sooner if needed. She understands. Multiple thyroid nodules 01/25/2022 Assessment & Plan (10/27/2022 5:20 PM CDT): I do not really notice any changes. We are going to check another ultrasound and that is being ordered. I will let her know the results. Further recommendations at that time. She also has some very slight asymmetry to the neck on the left side. Very subtle. Basically fatty tissue. Not a definable lipoma. I really felt that there was nothing that I would recommend doing. It is not very noticeable and I think it would probably become much more noticeable if she had a scar in that area especially if this area was not adequately corrected. Assessment & Plan (01/25/2022 10:09 AM ROTARY SWAGING MACHINE OPERATOR): We talked about further management of this. I told her that the chances of there being cancer in 1 of the nodules is very small. We can repeat an ultrasound and she would like to do that. I am recommending a follow-up in 6 months and we will do it at that time. Insomnia 08/11/2016 Anxiety 02/25/2016 Gastro-esophageal reflux disease without esophag itis 02/25/2016 Surgical History Surgery Date Site/Laterality Comments EYE SURGERY 02/26/1978 - 02/25/1979 OTHER SURGICAL HISTORY 02/26/2005 - 02/25/2006 [facility] Medical History Medical History Date Comments Gastro-esophageal reflux disease without esophag itis Anxiety Prediabetes Hypertension Diabetes mellitus (HCC) Family History Medical History Relation Name Comments Alzheimer's disease Father Diabetes Father Hypertension Father Kidney failure Father Breast cancer Mother Mother fr bere bacon 2002 Cancer Mother Diabetes Mother Hypertension Mother Other Other Aunt breast can cer ago 50 Relation Name Status Comments Father Mother Other Social History Tobacco Use Types Packs/Day Years Used Date Smoking Tobacco: Never Smokeless Tobacco: Never Alcohol Use Standard Drinks/Week Comments Yes 0 (1 standard drink = 0.6 oz pur e alcohol) socially PHQ-2 Answer Date Recorded PHQ-2 Score 0 10/17/2018 Personal Safety Answer Date Recorded Getting School Help Needed Not on file 02/14 Comments Unknown Sex and Gender Information Value Date Recorded Sex Assigned at Not on file Legal Sex Female 5:58 AM ROTARY SWAGING MACHINE OPERATOR Gender Identity Not on file Sexual Orientation Not on file Obstetrics History Last Filed Vital Signs Vital Sign Reading Time Taken Comments Blood Pressure 122/82 06/13/2023 7:58 AM CDT Pulse 78 06/13/2023 7:58 AM CDT Temperature 37.1 ??C (98.7 ??F) 03/24/2020 10:[address] Respiratory Rate 18 10/24/2022 4:36 PM CDT Oxygen Saturation 94% 06/13/2023 7:58 AM CDT Inhaled Oxygen Concentration - - Weight 78.5 kg (173 lb) 06/13/2023 7:58 AM CDT Height 167.6 cm (5' 6 ) 06/13/2023 7:58 AM CDT Body Mass Index 27.92 06/13/2023 7:58 AM CDT Plan of Treatment Health Maintenance Due Date Last Done Comments Colon Cancer Screening-Colonoscopy 1968 Hepatitis C Screening 1968 DTaP/Tdap/Td Vaccine (1 - Tdap) 02/11/1979 Hepatitis B Screening 02/11/1986 Regular Well Visit/Exam 18-64 02/11/1986 Cervical Cancer Screening 08/06/20152014, 06/20/2013 Zoster Vaccine (1 of 2) 02/11/2018 Breast Cancer Screening-Mammogram 03/31/2018 03/31/2017 Depression Screening 08/02/2019 08/01/2018 Influenza Vaccine (#1) 2023 Pneumococcal vaccine <65 Aged Out No longer eligible based on patient's age to complete this topic Procedures Procedure Name Priority Date/Time Associated Diagnosis Comments MAMMOGRAPHY Routine 03/31/2017 THINPREP PAP Routine 08/05/2014 3:15 PM CDT from Last 3 Months or Most Recently Relevant to Health Maintenance Results * MAMMOGRAPHY (03/31/2017) HM Mammogram Normal Historical Provider MD HEALTH MAINTENANCE Final Result * ThinPrep Pap (08/05/2014 3:15 PM CDT) Thin Prep Pap Smear SEE BELOW () 08/11 4:04 PM CDT [facility] HISTORICAL RESULTS Comment: Field Service Consultant ThinPrep Cytology Final Report ? ThinPrep Pap Specimen Source ? Cervix/Endocervix ?? Specimen Adequacy ? Satisfactory for interpretation, endocervical cells ?? (transformation zone) not present. ?? Interpretation ? Negative for intraepithelial lesion or malignancy. ?? Fungal organisms morphologically consistent with Narcisa species. ?? species. ?? 08/11/14 Flask Pusher: ARCENIO Gao(ASCP) ?Reviewed by: SBL ?? 08/11/14 ?Verified By: Sapna Jamil, ARCENIO(ASCP) ? electronic signature ?? [facility], Department of Pathology ?? For questions regarding this case, ?? call ext. [phone] ?? CPT Code(s) ? 45654 ?? Clinical History ? LMP: [id number] ?? : N ?? : N ?? IUD: N ?? Hormone Therapy: N ?? Postmenopausal: N ?? Previous surgery date and type: N ?? Hysterectomy: N ?? Chemotherapy: N ?? GELY Exposure: N ?? Radiation: N ?? Previous Abnormal Pap? Details: N ?? Diagnostic or Screening Pap Test: Screening ?? Performed by [employer], ?? [address] [place] [address] ?? [email or web address], Daniel Benson MD - Lab. Director ?? 08/05/2014 3:15 PM CDT 08/06/2014 9:56 AM CDT Garry Santos MD LAB PATHOLOGY ORDERABLE S Final Result Performing Organization Address City/State/[facility] de Phone Number [facility] HISTORICAL RESULTS from Last 3 Months or Most Recently Relevant to Health Maintenance Insurance [employer] PREFERRED [facility] CHOICE PLUS [facility] CHOICE PLUS Care Teams Laborer Powerhouse Relationship Specialty Start Date End Date Katalina Acosta MD PCP - General Family Medicine 03/05/20
--- OUTSIDE RECORDS SUMMARY | 2024-04-02 13:25 | XMS_ITS | Referral Summary ---
Author Organization [facility] Address [address] [place] [address] Care Team Providers Care Dike Supervisor Name Role Phone Katalina Acosta MD Primary Care Provider [phone] Allergies Active Allergy Reactions Criticality Noted Date [...] propionate 50 mcg/actuation nasal spray,suspension Active rafael lznc-qzezkhco-r amolenic ac 1,000 mg capsule Take by [...] 01/25/2022 Assessment & Plan (01/25/2022 10:10 AM BIOMEDICAL ENGINEER): I am really having a hard time [...] corrected. Assessment & Plan (01/25/2022 10:09 AM BIOMEDICAL ENGINEER): We talked about further management of this. [...] Gastro-esophageal reflux disease without esophag itis 02/25/2016 Social History Tobacco Use Types Packs/Day Years [...] on file Legal Sex Female 5:58 AM BIOMEDICAL ENGINEER Gender Identity Not on file Sexual Orientation [...] 06/13/2023 7:58 AM CDT Plan of Treatment Not on file Procedures Procedure Name Priority Date/Time Associated Diagnosis Comments MAMMOGRAPHY Routine 03/31/2017 THINPREP PAP Routine 08/05/2014 3:15 PM CDT from Last 3 Months or Most Recently Relevant to Health Maintenance Results * MAMMOGRAPHY (03/31/2017) Mammogram Normal Historical Provider HEALTH MAINTENANCE Final Result * ThinPrep Pap (08/05/2014 3:15 PM CDT) Thin Prep Pap Smear SEE BELOW () 08/11 4:04 PM CDT [facility] HISTORICAL RESULTS Comment: Insurance Healthcare Consultant ThinPrep Cytology Final Report ? ThinPrep Pap Specimen Source ? Cervix/Endocervix ?? Specimen Adequacy ? Satisfactory for interpretation, endocervical cells ?? (transformation zone) not present. ?? Interpretation ? Negative for intraepithelial lesion or malignancy. ?? Fungal organisms morphologically consistent with Narcisa species. ?? species. ?? 08/11/14 Welding Machine Operator Arc: ARCENIO Gao(ASCP) ?Reviewed by: SBL ?? 08/11/14 ?Verified By: ARCENIO Mon(ASCP) ? electronic signature ?? [facility], Department of Pathology ?? For questions regarding this case, ?? call ext. [phone] ?? CPT Code(s) ? 94252 ?? Clinical History ? LMP: [id number] ?? : N ?? : N ?? IUD: N ?? Hormone Therapy: N ?? Postmenopausal: N ?? Previous surgery date and type: N ?? Hysterectomy: N ?? Chemotherapy: N ?? GELY Exposure: N ?? Radiation: N ?? Previous Abnormal Pap? Details: N ?? Diagnostic or Screening Pap Test: Screening ?? Performed by [facility], ?? [address] [facility] [place] [address] ?? [email or web address], Daniel Benson MD - Lab. Director ?? 08/05/2014 3:15 PM CDT 08/06/2014 9:56 AM CDT Garry Santos MD LAB PATHOLOGY ORDERABLE S Final Result [facility] HISTORICAL RESULTS from Last 3 Months or Most Recently Relevant to Health Maintenance Insurance [facility] PREFERRED [facility] CHO[facility]US [facility] H[facility]PPO Address: [address] [address] [place] [address] [facility] CHOICE [facility]US [facility] Address: [place] [address] Care Teams Dike Supervisor Relationship Specialty Start Date End Date Katalina Acosta MD PCP - General Family Medicine 03/05/20
[2024-04-02 13:32] VITALS: BP 132/58; PULSE 76; RESP 18; O2SAT 100
== END 2024-04-02 13:40 | disposition home or self-care (01) ==
PROVIDERS: Emergency Provider Emergency Medicine; PCP Family Medicine
DX: M25.561 Pain in right knee (principal); M25.461 Effusion, right knee; E11.9 Type 2 diabetes mellitus without complications
CPT/HCPCS: 73564; 99284; A9270

== ENCOUNTER 2024-12-12 07:11 | Outpatient (CLI) | payer OTHER, SELFPAY ==
--- NOTE | ~2024-12-12 | MM_ITS ---
EXAMINATION: MM screening narendra BI w meliton HISTORY: Screening TECHNIQUE: Craniocaudal and mediolateral oblique 3-D tomosynthesis images were obtained and synthetic 2-D images were generated. CAD analysis was submitted and interpreted. COMPARISON: 11/30/2023 BREAST PARENCHYMAL COMPOSITION: The breasts are heterogeneously dense, which may obscure small masses. FINDINGS: There is no evidence of suspicious mass, calcification, or architectural distortion in either breast to suggest malignancy. Asymmetry in the outer right breast, middle depth, seen in the right cc projection. IMPRESSION: 1. Asymmetry in the outer right breast, middle depth, seen in the right craniocaudal projection. The study is incomplete. A diagnostic mammogram and a diagnostic ultrasound are recommended. BI-RADS 0: Incomplete-Need additional imaging evaluation. Reviewed, dictated and finalized at location Q. IMPRESSION: 1. Asymmetry in the outer right breast, middle depth, seen in the right cranioc audal projection. The study is incomplete. A diagnostic mammogram and a diagnos tic ultrasound are recommended. BI-RADS 0: Incomplete-Need additional imaging evaluation.
== END 2024-12-12 07:12 | disposition home or self-care (01) ==
LOC: MICIMG 07:12
PROVIDERS: PCP Family Medicine; Visit Provider Obstetrics & Gynecology
DX: Z12.31 Encounter for screening mammogram for malignant neoplasm of breast (principal); R92.8 Other abnormal and inconclusive findings on diagnostic imaging of breast
CPT/HCPCS: 77063; 77067

== ENCOUNTER 2025-02-09 08:42 | Outpatient (CLI) | payer OTHER, SELFPAY ==
--- NOTE | ~2025-02-09 | MM_ITS ---
EXAMINATION: MM diagnostic narendra RT w meliton INDICATION: 54-year old female; BI-RADS 0, callback to evaluate Right breast asymmetry COMPARISON: 12/12/2024 TECHNIQUE: Digital breast tomosynthesis True lateral view and spot compression CC of Right breast were obtained with computer-aided detection to assist in interpretation of the study. FINDINGS: The breasts are heterogeneously dense, which may obscure small masses. The asymmetry seen in the outer Right breast on the screening mammogram effaces on additional views, compatible with normal overlapping tissue.. IMPRESSION: Right breast finding represents superimposition of fibroglandular tissue. No further investigation necessary. RECOMMENDATION: Annual screening mammography in 12 months BI-RADS 2, BENIGN Reviewed, dictated and finalized at location C. [employer] IMPRESSION: Right breast finding represents superimposition of fibroglandular tissue. No fu rther investigation necessary. RECOMMENDATION: Annual screening mammography in 12 months BI-RADS 2, BENIGN
== END 2025-02-09 08:43 | disposition home or self-care (01) ==
PROVIDERS: PCP Student in an Organized Health Care Education/Training Program; Visit Provider Nurse Practitioner Obstetrics & Gynecology
DX: R92.8 Other abnormal and inconclusive findings on diagnostic imaging of breast (principal); R92.321 Mammographic fibroglandular density, right breast
CPT/HCPCS: 77061; 77065; G0279